=== PATIENT | female | born 1990 | race Caucasian/White ===

== ENCOUNTER 2020-12-05 16:56 | Emergency (ER) | payer MEDICAID ==
[2020-12-06 01:33] LABS: SARS-CoV-2 PCR by NAA Not Detected (NotDetected)
== END 2020-12-05 18:40 | disposition home or self-care (01) ==
LOC: CSHERS 16:56
DX: R05 Cough (principal); R06.02 Shortness of breath; M79.10 Myalgia, unspecified site; R50.9 Fever, unspecified; Z20.822 Contact with and (suspected) exposure to COVID-19; F17.210 Nicotine dependence, cigarettes, uncomplicated
CPT/HCPCS: 87635; 99283; U0003; U0005